=== PATIENT | female | born 1935 | race Caucasian/White ===

== ENCOUNTER 2017-01-09 11:58 | Emergency (ER) | payer MEDICARE ==
[~2017-01-09] VITALS: Ht 162.6 cm; Wt 100.0 kg
[~2017-01-09 11:58] MED LIST: ASPI81 PO; ATEN1TAB73 PO; ATOR80TA41 PO; DEMA10TA PO; GLYB1TAB51 PO; INSULIN; LISI40TA PO; TAB-TAB PO; VERA40TA PO; VICTOZA SQ
[2017-01-09 11:59] VITALS: BP 203/83; PULSE 58; RESP 17; TEMP 98.2; O2SAT 98
[2017-01-09 12:49] LABS: AUTOMATED NEUTROPHIL # 4.1 TH/MM3 (1.8-7.7); BASOPHIL % 0.5 % (0.0-2.0); EOSINOPHIL # 0.1 TH/MM3 (0-0.4); EOSINOPHIL % 1.5 % (0.0-4.0); HEMATOCRIT 34.1 % (35.0-46.0); HEMO FLAGS DIFF FINAL; LYMPH % 27.5 % (9.0-44.0); LYMPHOCYTE # 1.9 TH/MM3 (1.0-4.8); MEAN CELL VOLUME 97.3 FL (80.0-100.0); MEAN CORPUSCULAR HEMOGLOBIN 31.7 PG (27.0-34.0); MEAN CORPUSCULAR HGB CONC 32.5 % (32.0-36.0); MONO % 11.5 % (0.0-8.0); PLATELET COUNT 204 TH/MM3 (150-450); RED CELL DISTRIBUTION WIDTH 13.6 % (11.6-17.2)
[2017-01-09 12:56] LABS: APTT (PATIENT) 23.9 SEC (24.3-30.1); PROTHROMBIN TIME - PATIENT 10.5 SEC (9.8-11.6)
[2017-01-09 13:08] LABS: ALT (GPT) 34 U/L (10-53); ANION GAP 7 MEQ/L (5-15); AST (GOT) 23 U/L (15-37); BICARBONATE 28.7 MEQ/L (21.0-32.0); BLOOD UREA NITROGEN 38 MG/DL (7-18); CHLORIDE 106 MEQ/L (98-107); GLOMERULAR FILTRATION RATE 36 ML/MIN (>89); POTASSIUM 4.3 MEQ/L (3.5-5.1); SODIUM (NA) 142 MEQ/L (136-145)
[2017-01-09 13:10] LABS: ALKALINE PHOSPHATASE 33 U/L (45-117); TOTAL BILIRUBIN ADULT 0.3 MG/DL (0.2-1.0)
[2017-01-09] MEDS ORDERED: ZETI10TA5 PO (13:14)
[2017-01-09] MEDS ORDERED: VERA120 PO (13:14)
[2017-01-09] MEDS ORDERED: MSM1000C PO (13:14)
[2017-01-09] MEDS ORDERED: GABA300C5 PO (13:14)
[2017-01-09] MEDS ORDERED: LISI40TA PO (13:17)
[2017-01-09] MEDS ORDERED: ATOR40TA16 PO (13:17)
[2017-01-09] MEDS ORDERED: NOVOLOGP2 SQ ×3 (13:17→13:19)
[2017-01-09] MEDS ORDERED: ASPI81TA81 (13:17)
[2017-01-09] MEDS ORDERED: INSU1INJ14 SQ (13:17)
[2017-01-09] MEDS ORDERED: GLIM4TAB PO (13:17)
[2017-01-09] MEDS ORDERED: MULT-120 PO (13:17)
[2017-01-09] MEDS ORDERED: FENO160T PO (13:17)
[2017-01-09] MEDS ORDERED: ATEN50TA PO (13:17)
[2017-01-09] MEDS ORDERED: TORS10TA2 PO (13:17)
[2017-01-09] MEDS ORDERED: RIVA1TAB PO (13:44)
--- NOTE | 2017-01-09 13:44 | PD ---
HPI Chief Complaint: Pain: Acute or Chronic Time Seen by Provider: 13:09 Travel History International Travel<30 days: No Contact w/Intl Traveler<30days: No Traveled to known affect area: No History of Present Illness HPI Patient is a pleasant 81-year-old female presents emergency by with complaint of left leg swelling and slight pain in the popliteal fossa. Patient seen by PCP and sent for outpatient duplex ultrasound to rule out DVT which was positive and she was sent here. She does not have any recent risk factors, immobilization, travel, etc. to have DVT. She has a remote history of DVT a proximal February 30 years ago. No chest pain, shortness of breath hemoptysis to suggest PE. PFSH Past Medical History High Cholesterol: Yes Diabetes: Yes Patient Takes Glucophage: No Diminished Hearing: No Hypertension: Yes Tetanus Vaccination: > 5 Years Influenza Vaccination: Yes ?: Not : 4 Para: 4 Miscarriage: 0 : 0 Social History Alcohol Use: No Tobacco Use: No Substance Use: No Allergies-Medications (Allergen,Severity, Reaction): Coded Allergies: Zocor (Verified Allergy, Severe, Joint Pain, 01/09/17) Reported Meds & Prescriptions Reported Meds & Active Scripts Active Reported Novolog Inj (Insulin Aspart) 1,000 Unit/10 Ml Vial 16 Units SQ AC DINNER Novolog Inj (Insulin Aspart) 1,000 Unit/10 Ml Vial 10 Units SQ AC LUNCH Novolog Inj (Insulin Aspart) 1,000 Unit/10 Ml Vial 16 Units SQ AC BREAKFAST Tresiba Flextouch Pen Inj (Insulin Degludec Inj) 300 unit/3 ML Pen 60 Units SQ DAILY Torsemide 10 Mg Tab 10 Mg PO DAILY Fenofibrate 160 Mg Tab 160 Mg PO DAILY Glimepiride 4 Mg Tab 4 Mg PO BIDAC Atorvastatin (Atorvastatin Calcium) 40 Mg Tab 40 Mg PO HS Atenolol 50 Mg Tab 0.5 Tab PO DAILY Aspir-81 (Aspirin) 81 Mg Tabdr Multivitamin Women (Multiple Vitamins W/ Minerals) 1 Tab Tab 1 Tab PO DAILY Lisinopril 40 Mg Tab 40 Mg PO DAILY Calan (Verapamil HCl) 120 Mg Tab 240 Mg PO DAILY Msm (Methylsulfonylmethane) 1,000 Mg Cap 1,000 Mg PO DAILY Gabapentin 300 Mg Cap 300 Mg PO DAILY PRN Zetia (Ezetimibe) 10 Mg Tab 10 Mg PO DAILY Review of Systems Except as stated in HPI: all other systems reviewed are Neg Physical Exam Narrative GENERAL: Pleasant elderly female in no acute distress SKIN: Warm and dry. HEAD: Normocephalic. EYES: No scleral icterus. No injection or drainage. ENT: No nasal bleeding or discharge. Mucous membranes pink and moist. NECK: Supple CARDIOVASCULAR: Regular rate and rhythm. No murmur appreciated. RESPIRATORY: No accessory muscle use. Clear to auscultation. Breath sounds equal bilaterally. GASTROINTESTINAL: Obese MUSCULOSKELETAL: Left lower extremity with 1+ edema compared to the right extending up to the knee. No erythema or palpable cords NEUROLOGICAL: Awake and alert. Normal speech. PSYCHIATRIC: Appropriate mood and affect; insight and judgment normal. Data Data Last Documented VS Vital Signs Date Time Temp Pulse Resp B/P Pulse Ox O2 Delivery O2 Flow Rate FiO2 01/09/17 13:05 16 01/09/17 11:59 98.2 58 203/83 98 Orders Complete Blood Count With Diff (01/09/17 12:11) Comprehensive Metabolic Panel (01/09/17 12:11) Prothrombin Time / Inr (Pt) (01/09/17 12:11) Act Partial Throm Time (Ptt) (01/09/17 12:11) Labs Laboratory Tests Test 01/09/17 12:30 White Blood Count 7.0 TH/MM3 Red Blood Count 3.50 MIL/MM3 Hemoglobin 11.1 GM/DL Hematocrit 34.1 % Mean Corpuscular Volume 97.3 FL Mean Corpuscular Hemoglobin 31.7 PG Mean Corpuscular Hemoglobin 32.5 % Concent Red Cell Distribution Width 13.6 % Platelet Count 204 TH/MM3 Mean Platelet Volume 8.3 FL Neutrophils (%) (Auto) 59.0 % Lymphocytes (%) (Auto) 27.5 % Monocytes (%) (Auto) 11.5 % Eosinophils (%) (Auto) 1.5 % Basophils (%) (Auto) 0.5 % Neutrophils # (Auto) 4.1 TH/MM3 Lymphocytes # (Auto) 1.9 TH/MM3 Monocytes # (Auto) 0.8 TH/MM3 Eosinophils # (Auto) 0.1 TH/MM3 Basophils # (Auto) 0.0 TH/MM3 CBC Comment DIFF FINAL Differential Comment Prothrombin Time 10.5 SEC Prothromb Time International 1.0 RATIO Ratio Activated Partial 23.9 SEC Thromboplast Time Sodium Level 142 MEQ/L Potassium Level 4.3 MEQ/L Chloride Level 106 MEQ/L Carbon Dioxide Level 28.7 MEQ/L Anion Gap 7 MEQ/L Blood Urea Nitrogen 38 MG/DL Creatinine 1.40 MG/DL Estimat Glomerular Filtration 36 ML/MIN Rate Random Glucose 146 MG/DL Calcium Level 9.5 MG/DL Total Bilirubin 0.3 MG/DL Aspartate Amino Transf 23 U/L (AST/SGOT) Alanine Aminotransferase 34 U/L (ALT/SGPT) Alkaline Phosphatase 33 U/L Total Protein 8.1 GM/DL Albumin 3.8 GM/DL [facility] Medical Decision Making Medical Screen Exam Complete: Yes Emergency Medical Condition: Yes Medical Record Reviewed: Yes Differential Diagnosis 81-year-old female here with complaint of left leg swelling, pain and positive DVT. Differential includes DVT, cellulitis, superficial thrombus phlebitis. No evidence of phlegmasia on exam Narrative Course CBC, BMP and coags were unremarkable. Patient seems an appropriate candidate to be treated with Xarelto for home and outpatient PCP follow-up. Diagnosis Primary Impression: Left leg DVT Qualified Code: I82.412 - Acute deep vein thrombosis (DVT) of femoral vein of left lower extremity Referrals: Primary Care Physician 3 days Security Coordinator Patient Instructions: Deep Venous Thrombosis (ED), General Instructions Additional Instructions: Xarelto as prescribed. Follow-up with primary care provider midweek next week as discussed. Med/Other Pt SpecificInfo: Prescription(s) given Scripts Rivaroxaban Starter Pack 15 & 20 mg (Xarelto Starter Pack 15 & 20 mg)1 Tab Tab1 Tab PO DIRECTED 30 Days Ref 0 Prov:Geovanna Luis MD 01/09/17 Disposition: 01 DISCHARGE HOME Condition: Stable Geovanna Luis MD Jan 09, 2017 13:44
== END 2017-01-09 14:08 | disposition home or self-care (01) ==
LOC: NEPB 11:58
DX: I82.412 Acute embolism and thrombosis of left femoral vein (principal); E78.00 Pure hypercholesterolemia, unspecified; E11.9 Type 2 diabetes mellitus without complications; I10 Essential (primary) hypertension; Z79.4 Long term (current) use of insulin
CPT/HCPCS: 80053; 85025; 85610; 85730; 99283